=== PATIENT | male | born 1985 | race Asian ===

== ENCOUNTER 2020-01-23 14:01 | Inpatient (IN) | payer MEDICAID ==
[~2020-01-23] VITALS: Ht 157.5 cm; Wt 53.0 kg
[2020-01-23] MEDS ORDERED: DIPH25 PO (15:51)
[2020-01-23] MEDS ORDERED: LITH600 PO (15:51)
[2020-01-23] MEDS ORDERED: OLAN10TA3 PO ×2 (15:51)
[2020-01-23] MEDS ORDERED: DOCU-275 PO (15:52)
[2020-01-23] MEDS ORDERED: MAG HYDROX/AL HYDROX/SIMETH ES 30 ML SUSPENSION UDCUP PO PRN (19:00)
[2020-01-23] MEDS ORDERED: GuaiFENesin/D-METHORPHAN [SUGAR-FREE] 200-20MG/10 ML SYRUP UDCUP PO PRN (19:00)
[2020-01-23] MEDS ORDERED: PALIPERIDONE 1.5 MG ER TABLET PO PRN (19:00)
[2020-01-23] MEDS ORDERED: TUBERCULIN, PURIFIED PROTEIN DERIVATIVE 5 TU/0.1 ML SYRINGE ID ONE (19:00)
[2020-01-23] MEDS ORDERED: ACETAMINOPHEN 325 MG TABLET PO PRN (19:00)
[2020-01-23] MEDS ORDERED: PROMETHAZINE HCL 25 MG TABLET PO PRN (19:00)
[2020-01-23] MEDS ORDERED: MAGNESIUM HYDROXIDE SUSPENSION 30 ML UDCUP PO PRN (19:00)
[2020-01-23] MEDS ORDERED: PALIPERIDONE PALMITATE 234 MG/1.5 ML SYRINGE IM ONE (19:00)
[2020-01-23] MEDS ORDERED: LOPERAMIDE HCL 2 MG CAPSULE PO PRN (19:00)
[2020-01-23] MEDS ORDERED: HydrOXYzine PAMOATE 50 MG CAPSULE PO PRN (19:00)
[2020-01-23] MEDS: THIAMINE 100 MG TABLET PO SCH (20:57)
[2020-01-23] MEDS: DIVALPROEX SODIUM 500 MG ER TABLET PO SCH (20:57)
[2020-01-23] MEDS: ZOLPIDEM TARTRATE 10 MG TABLET PO PRN (20:57)
[2020-01-23] MEDS ORDERED: PALIPERIDONE 3 MG ER TABLET PO SCH (21:00)
[2020-01-24 05:05] VITALS: BP 110/72
[2020-01-24 08:07] VITALS: BP 114/59
[2020-01-24] MEDS: MULTIVITAMINS WITH MINERALS, THERAPEUTIC TABLET PO SCH (09:06)
[2020-01-24] MEDS: NALTREXONE HCL 50 MG TABLET PO SCH (09:06)
[2020-01-24] MEDS: THIAMINE 100 MG TABLET PO SCH ×2 (09:07→16:09)
[2020-01-24] MEDS: FOLIC ACID 1 MG TABLET PO SCH (09:07)
[2020-01-24 16:01] VITALS: BP 124/72
[2020-01-24] MEDS: LORazepam 2 MG TABLET PO PRN (16:24)
[2020-01-24] MEDS: ZOLPIDEM TARTRATE 10 MG TABLET PO PRN (20:03)
[2020-01-24] MEDS: DIVALPROEX SODIUM 500 MG ER TABLET PO SCH (20:03)
[2020-01-25 00:01] VITALS: BP 118/70
[2020-01-25 07:52] LABS: BASOPHILS % (AUTO) 0.7 % (0.0-2.0); EOSINOPHILS % (AUTO) 1.9 % (1.0-6.0); HEMATOCRIT 45.5 % (41-53); HEMOGLOBIN 15.2 g/dL (13.5-17.5); LYMPHOCYTES # (AUTO) 2.3 K/uL (1.0-4.8); LYMPHOCYTES % (AUTO) 26.8 % (22.0-44.0); MEAN CORPUSCULAR HEMOGLOBIN 31.5 pg (26.0-34.0); MEAN CORPUSCULAR HGB CONC 33.4 G/dL (31.0-37.0); MEAN CORPUSCULAR VOLUME 94 fL (80-100); MONOCYTES # (AUTO) 0.3 K/uL (0.1-1.0); NEUTROPHILS # (AUTO) 5.7 K/uL (1.8-7.7); NEUTROPHILS % (AUTO) 66.6 % (40.0-70.0); PLATELET COUNT (AUTO) 268 K/uL (150-450); RED BLOOD CELL COUNT(AUTO) 4.82 MIL/uL (4.50-5.90)
[2020-01-25 08:11] LABS: HEMOGLOBIN A1C 5.1 % (3.8-5.6)
[2020-01-25] MEDS: NALTREXONE HCL 50 MG TABLET PO SCH (08:15)
[2020-01-25] MEDS: FOLIC ACID 1 MG TABLET PO SCH (08:15)
[2020-01-25] MEDS: MULTIVITAMINS WITH MINERALS, THERAPEUTIC TABLET PO SCH (08:15)
[2020-01-25] MEDS: THIAMINE 100 MG TABLET PO SCH ×2 (08:16→16:06)
[2020-01-25 08:21] VITALS: BP 106/69
[2020-01-25 08:21] LABS: ALANINE AMINOTRANSFERASE 33 U/L (12-78); ALBUMIN 3.7 g/dL (3.4-5.0); ALKALINE PHOSPHATASE 72 U/L (46-116); ANION GAP 3 mmol/L (8-16); ASPARTATE AMINOTRANSFERASE 18 U/L (15-37); BILIRUBIN,TOTAL 0.2 mg/dL (0.1-1.0); CALCIUM, TOTAL 8.7 mg/dL (8.8-10.5); CARBON DIOXIDE 34 mmol/L (22-29); CHLORIDE 102 mmol/L (98-107); CHOL/HDL RATIO 4.7 (4.2-7.3); CHOLESTEROL 151 mg/dL (131-200); CREATININE 0.89 mg/dL (0.60-1.30); FREE T4 (FREE THYROXINE) 1.29 ng/dL (0.76-1.46); GLOMERULAR FILTR. RATE CALC > 60 mL/min (>60); GLUCOSE,RANDOM 106 mg/dL (70-110); HDL CHOLESTEROL 32 mg/dL (40-60); LDL CHOL (CALC.) 75 mg/dL (0-130); POTASSIUM 3.9 mmol/L (3.5-5.1); SODIUM SERUM 139 mmol/L (136-145); THYROID STIMULATING HORMONE 0.68 uIU/mL (0.36-3.74); TRIGLYCERIDES 220 mg/dL (15-150); UREA NITROGEN, BLOOD 12 mg/dL (7-18)
[2020-01-25] MEDS: LORazepam 2 MG TABLET PO PRN ×2 (13:45→18:33)
[2020-01-25] MEDS ORDERED: OLANZapine 5 MG RAPDIS TABLET PO PRN (15:15)
[2020-01-25 16:37] VITALS: BP 132/76
[2020-01-25 20:48] VITALS: BP 130/83
[2020-01-25] MEDS ORDERED: RisperiDONE 2 MG TABLET PO SCH (21:00)
[2020-01-25] MEDS ORDERED: OLANZapine 5 MG RAPDIS TABLET PO SCH (21:00)
[2020-01-25] MEDS: DIVALPROEX SODIUM 500 MG ER TABLET PO SCH (21:30)
[2020-01-26 04:00] VITALS: BP 134/87
[2020-01-26] MEDS: THIAMINE 100 MG TABLET PO SCH ×2 (08:12→16:27)
[2020-01-26] MEDS: NALTREXONE HCL 50 MG TABLET PO SCH (08:12)
[2020-01-26] MEDS: MULTIVITAMINS WITH MINERALS, THERAPEUTIC TABLET PO SCH (08:12)
[2020-01-26] MEDS: RisperiDONE 1 MG TABLET PO PRN ×2 (08:12→16:27)
[2020-01-26] MEDS: FOLIC ACID 1 MG TABLET PO SCH (08:12)
[2020-01-26] MEDS: LORazepam 2 MG TABLET PO PRN ×2 (08:12→16:27)
[2020-01-26 14:29] VITALS: BP 109/85
[2020-01-26 16:13] VITALS: BP 105/73
[2020-01-26] MEDS: DIVALPROEX SODIUM 500 MG ER TABLET PO SCH (20:25)
[2020-01-26] MEDS: RisperiDONE 3 MG TABLET PO SCH (20:25)
[2020-01-27 05:01] VITALS: BP 112/73
[2020-01-27] MEDS: FOLIC ACID 1 MG TABLET PO SCH (08:16)
[2020-01-27] MEDS: THIAMINE 100 MG TABLET PO SCH ×2 (08:16→16:14)
[2020-01-27] MEDS: RisperiDONE 1 MG TABLET PO PRN (08:16)
[2020-01-27] MEDS: NALTREXONE HCL 50 MG TABLET PO SCH (08:16)
[2020-01-27] MEDS: LORazepam 2 MG TABLET PO PRN ×2 (08:16→16:14)
[2020-01-27] MEDS: MULTIVITAMINS WITH MINERALS, THERAPEUTIC TABLET PO SCH (08:16)
[2020-01-27 08:22] VITALS: BP 125/86
[2020-01-27] MEDS ORDERED: PALIPERIDONE PALMITATE 156 MG/ML SYRINGE IM ONE (09:00)
[2020-01-27] MEDS ORDERED: RisperiDONE 1 MG TABLET PO PRN (12:45)
[2020-01-27 16:13] VITALS: BP 145/71
[2020-01-27] MEDS: DIVALPROEX SODIUM 500 MG ER TABLET PO SCH (20:50)
[2020-01-27] MEDS: RisperiDONE 3 MG TABLET PO SCH (20:50)
[2020-01-28 06:25] VITALS: BP 128/78
[2020-01-28] MEDS: THIAMINE 100 MG TABLET PO SCH ×2 (08:16→16:13)
[2020-01-28] MEDS: LORazepam 2 MG TABLET PO PRN ×2 (08:16→16:13)
[2020-01-28] MEDS: MULTIVITAMINS WITH MINERALS, THERAPEUTIC TABLET PO SCH (08:16)
[2020-01-28] MEDS: NALTREXONE HCL 50 MG TABLET PO SCH (08:16)
[2020-01-28] MEDS: FOLIC ACID 1 MG TABLET PO SCH (08:16)
[2020-01-28 08:32] VITALS: BP 124/75
[2020-01-28 16:20] VITALS: BP 115/75
[2020-01-28] MEDS: RisperiDONE 3 MG TABLET PO SCH (20:31)
[2020-01-28] MEDS: DIVALPROEX SODIUM 500 MG ER TABLET PO SCH (20:31)
[2020-01-29 01:14] VITALS: BP 99/66
[2020-01-29] MEDS: THIAMINE 100 MG TABLET PO SCH ×2 (08:33→17:16)
[2020-01-29] MEDS: FOLIC ACID 1 MG TABLET PO SCH (08:33)
[2020-01-29] MEDS: NALTREXONE HCL 50 MG TABLET PO SCH (08:33)
[2020-01-29] MEDS: MULTIVITAMINS WITH MINERALS, THERAPEUTIC TABLET PO SCH (08:33)
[2020-01-29] MEDS: LORazepam 2 MG TABLET PO PRN ×2 (08:33→17:16)
[2020-01-29 08:44] VITALS: BP 114/66
[2020-01-29 16:12] VITALS: BP 110/67
[2020-01-29] MEDS: DIVALPROEX SODIUM 500 MG ER TABLET PO SCH (21:01)
[2020-01-29] MEDS: RisperiDONE 3 MG TABLET PO SCH (21:02)
[2020-01-29] MEDS: ZOLPIDEM TARTRATE 10 MG TABLET PO PRN (21:02)
[2020-01-30 01:15] VITALS: BP 114/75
[2020-01-30 08:31] VITALS: BP 129/89
[2020-01-30] MEDS: MULTIVITAMINS WITH MINERALS, THERAPEUTIC TABLET PO SCH (08:40)
[2020-01-30] MEDS: FOLIC ACID 1 MG TABLET PO SCH (08:40)
[2020-01-30] MEDS: LORazepam 2 MG TABLET PO PRN (08:40)
[2020-01-30] MEDS: THIAMINE 100 MG TABLET PO SCH ×2 (08:40→17:10)
[2020-01-30] MEDS: NALTREXONE HCL 50 MG TABLET PO SCH (08:40)
[2020-01-30 16:10] VITALS: BP 100/68
[2020-01-30] MEDS: DIVALPROEX SODIUM 500 MG ER TABLET PO SCH (21:04)
[2020-01-30] MEDS: RisperiDONE 4 MG TABLET PO SCH (21:04)
[2020-01-31 06:12] VITALS: BP 118/78
[2020-01-31 08:07] VITALS: BP 109/60
[2020-01-31] MEDS: THIAMINE 100 MG TABLET PO SCH ×2 (09:09→16:37)
[2020-01-31] MEDS: NALTREXONE HCL 50 MG TABLET PO SCH (09:09)
[2020-01-31] MEDS: FOLIC ACID 1 MG TABLET PO SCH (09:09)
[2020-01-31] MEDS: MULTIVITAMINS WITH MINERALS, THERAPEUTIC TABLET PO SCH (09:10)
[2020-01-31 16:20] VITALS: BP 125/87
[2020-01-31] MEDS: DIVALPROEX SODIUM 500 MG ER TABLET PO SCH (21:16)
[2020-01-31] MEDS: RisperiDONE 4 MG TABLET PO SCH (21:16)
[2020-02-01 05:16] VITALS: BP 110/76
[2020-02-01 08:08] VITALS: BP 114/77
[2020-02-01] MEDS: NALTREXONE HCL 50 MG TABLET PO SCH (08:37)
[2020-02-01] MEDS: FOLIC ACID 1 MG TABLET PO SCH (08:37)
[2020-02-01] MEDS: MULTIVITAMINS WITH MINERALS, THERAPEUTIC TABLET PO SCH (08:37)
[2020-02-01] MEDS: THIAMINE 100 MG TABLET PO SCH ×2 (08:38→17:22)
[2020-02-01] MEDS ORDERED: RisperiDONE 4 MG TABLET PO PRN (11:22)
[2020-02-01] MEDS ORDERED: RISP2TAB76 PO (13:20)
[2020-02-01] MEDS ORDERED: DIVA-80 PO (13:20)
[2020-02-01] MEDS ORDERED: NALT50TA PO (13:20)
[2020-02-01 16:20] VITALS: BP 110/71
[2020-02-01] MEDS: LORazepam 2 MG TABLET PO PRN (17:22)
[2020-02-01] MEDS: DIVALPROEX SODIUM 500 MG ER TABLET PO SCH (20:50)
[2020-02-01] MEDS ORDERED: RisperiDONE 3 MG TABLET PO SCH ×2 (21:00)
[2020-02-01] MEDS ORDERED: RisperiDONE 2 MG TABLET PO SCH ×2 (21:00)
[2020-02-02 08:16] VITALS: BP 117/67
[2020-02-02] MEDS: FOLIC ACID 1 MG TABLET PO SCH (08:30)
[2020-02-02] MEDS: THIAMINE 100 MG TABLET PO SCH (08:30)
[2020-02-02] MEDS: NALTREXONE HCL 50 MG TABLET PO SCH (08:30)
[2020-02-02] MEDS: MULTIVITAMINS WITH MINERALS, THERAPEUTIC TABLET PO SCH (08:30)
[2020-02-02 16:29] VITALS: BP 126/82
== END 2020-02-02 18:46 | disposition home or self-care (01) | DRG 885 ==
LOC: B3A 18:35 → B2S 01-25 09:50 → 3EI 01-25 19:28 → B3A 01-25 21:08
PROVIDERS: ADMIT Psychiatry & Neurology Psychiatry; ATTEND Psychiatry & Neurology Psychiatry
DX: F20.0 Paranoid schizophrenia (principal); R45.851 Suicidal ideations; F15.90 Other stimulant use, unspecified, uncomplicated; Z91.19 Patient's noncompliance with other medical treatment and regimen; F17.210 Nicotine dependence, cigarettes, uncomplicated; F12.90 Cannabis use, unspecified, uncomplicated
CPT/HCPCS: 83036; 84439; 84443; 86592